=== PATIENT | female | born 1980 | race Caucasian/White ===

== ENCOUNTER 2016-10-20 12:25 | Emergency (ER) | END 2016-10-20 12:30 | disposition left against medical advice (07) | LOC: UCEAST 12:25 | DX: L98.9 Disorder of the skin and subcutaneous tissue, unspecified (principal); Z53.21 Procedure and treatment not carried out due to patient leaving prior to being seen by health care provider ==

== ENCOUNTER 2016-10-20 12:32 | Emergency (ER) | payer BC ==
[2016-10-20 13:20] VITALS: BP 140/81
--- NOTE | 2016-10-20 14:03 | UC ---
Skin Complaint HPI - HPI Summary HPI Summary: 1) MOLE ON LEFT SIDE OF ABDOMEN BECAME CRUSTY AND SHANGED COLOR. WOULD LIKE REFERRAL FOR DERMATOLOGY. 2) RAN OUT OF PAXIL AND IS BETWEEN PRIMARY CARE DOCTORS. IS GOING TO CALL PREVIOUS PCP TO SEE IF PAXIL PRESCRIPTION CAN BE CALLED IN. - History of Current Complaint Chief Complaint: UCSkin Time Seen by Provider: 10/20/16 13:06 Stated Complaint: SKIN COMPLAINT Hx Obtained From: Patient Hx Last Menstrual Period: 10/13/16 Onset/Duration: Gradual Onset, Lasting Days, Still Present Skin Exposure Onset/Duration: Days Ago Onset Severity: Mild Current Severity: Mild Pain Intensity: 0 Pain Scale Used: 0-10 Numeric Location: Discrete - LEFT ANTERIOR ABDOMEN Aggravating: Nothing Alleviating: Nothing Associated Signs & Symptoms: Positive: Negative - Allergy/Home Medications Allergies/Adverse Reactions: Allergies Allergy/AdvReac Type Severity Reaction Status Date / Time No Known Allergies Allergy Verified 10/20/16 13:12 Home Medications: Home Medications Ibuprofen TAB* [Advil TAB*] 600 mg PO Q6H PRN 10/20/16 [History Confirmed ] PARoxetine HCL TAB* [Paxil TAB*] 40 mg PO DAILY 10/20/16 [History Confirmed ] Review of Systems Constitutional: Negative Skin: Other - MOLE LEFT ANTERIOR ABDOMEN (LUQ) CHANGING TEXTURE/SHAPE Eyes: Negative ENT: Negative Respiratory: Negative Cardiovascular: Negative Gastrointestinal: Negative Genitourinary: Negative Motor: Negative Neurovascular: Negative Musculoskeletal: Negative Neurological: Negative Psychological: Negative All Other Systems Reviewed And Are Negative: Yes PMH/Surg Hx/FS Hx/Imm Hx Previously Healthy: Yes - Surgical History Surgical History: None - Family History Known Family History: Positive: None Negative: Cardiac Disease, Blood Disorder, Other Family History: no cardio-vascular issues in bio family - Social History Occupation: Employed Full-time Lives: With Family Alcohol Use: Occasionally Substance Use Type: None Smoking Status (MU): Current Some Day Smoker Type: Cigarettes Amount Used/How Often: occasional use Cessation Counseling: Patient Advised to Stop Physical Exam Triage Information Reviewed: Yes Appearance: Well-Appearing, No Pain Distress, Well-Nourished Vital Signs: Initial Vital Signs Temp 99 F 10/20/16 13:14 Pulse 84 10/20/16 13:14 Resp 16 10/20/16 13:14 BP 140/81 10/20/16 13:14 Pulse Ox 100 10/20/16 13:14 Vital Signs Reviewed: Yes Eye Exam: Normal ENT Exam: Normal ENT: Positive: Normal ENT inspection, Hearing grossly normal, Pharynx normal, TMs normal Dental Exam: Normal Neck exam: Normal Neck: Positive: Supple, Nontender, No Lymphadenopathy Respiratory Exam: Normal Respiratory: Positive: Chest non-tender, Lungs clear, Normal breath sounds, No respiratory distress, No accessory muscle use Cardiovascular Exam: Normal Cardiovascular: Positive: RRR, No Murmur, Pulses Normal Abdominal Exam: Normal Musculoskeletal Exam: Normal Neurological Exam: Normal Psychological Exam: Normal Skin: Positive: Other - MOLE LEFT ANTERIOR ABDOMEN (LUQ) CHANGING TEXTURE/ SHAPE. MOLE IS 0.5 CM X 0.5 CM MACULAR, LIGHT BROWN, WITH BLACK CENTRAL SPECKS ON LUQ OF ANTERIOR ABDOMEN Course/Dx - Differential Diagnoses - Skin Complaint Differential Diagnoses: Cellulitis, Eczema, Impetigo, Tinea - Diagnoses Provider Diagnoses: ATYPICAL MOLE LUQ; MOOD DISORDER NOS. Discharge - Discharge Plan Condition: Stable Disposition: HOME Patient Education Materials: Mood Disorders (ED), Atypical Mole (ED) Referrals: Zach Moreno MD [Medical Doctor] - Non Staff,Doctor [Primary Care Provider] - Robert RG,Bryce Patel [Medical Doctor] - Images Front/Back of Body, Lg ([place]): 1 - MOLE LEFT ANTERIOR ABDOMEN (LUQ) CHANGING TEXTURE/SHAPE
== END 2016-10-20 13:45 | disposition home or self-care (01) ==
LOC: UCCORT 12:32
DX: D22.5 Melanocytic nevi of trunk (principal); F39 Unspecified mood [affective] disorder; Z72.0 Tobacco use
CPT/HCPCS: 99212; G0463

== ENCOUNTER 2017-05-06 09:07 | Emergency (ER) | payer BC ==
--- NOTE | 2017-05-06 09:19 | UC ---
Skin Complaint HPI - HPI Summary HPI Summary: 37 year old female with rash. c/o red, raised, slightly itching area on upper abd that started on 04/26/17. has one pactch on the chest that started and now the rash has spread down the abdomen . slight itch. not significant. no discharge. no erythema. no streaking. [facility] and may have started then or after she is not sure [ End ] - History of Current Complaint Time Seen by Provider: 05/06/17 09:18 Stated Complaint: RASH Hx Obtained From: Patient Hx Last Menstrual Period: 10/13/16 Onset/Duration: Gradual Onset Timing: Constant Aggravating Factor(s): Nothing Alleviating Factor(s): Nothing - Allergy/Home Medications Allergies/Adverse Reactions: Allergies Allergy/AdvReac Type Severity Reaction Status Date / Time No Known Allergies Allergy Verified 05/06/17 09:20 Home Medications: Home Medications Bc Patch 1 applic TOPICAL WEEKLY 05/06/17 [History] Review of Systems Skin: Rash All Other Systems Reviewed And Are Negative: Yes PMH/Surg Hx/FS Hx/Imm Hx Previously Healthy: Yes - Surgical History Surgical History: None - Family History Known Family History: Positive: None Negative: Cardiac Disease, Blood Disorder, Other Family History: no cardio-vascular issues in bio family - Social History Occupation: Employed Full-time Alcohol Use: Occasionally Substance Use Type: None Smoking Status (MU): Current Some Day Smoker Type: Cigarettes Amount Used/How Often: occasional use Cessation Counseling: Patient Advised to Stop Physical Exam Triage Information Reviewed: Yes Appearance: Well-Appearing, No Pain Distress, Well-Nourished Vital Signs Reviewed: Yes Respiratory Exam: Normal Cardiovascular Exam: Normal Musculoskeletal Exam: Normal Neurological Exam: Normal Psychological Exam: Normal Skin: Positive: rashes - herald raised red patch on sterum 2x2 cm. maculopapular red raised lesions in rebeca tree pattern on the abdomen. no discharge. no erythema. no streaking. Course/Dx - Course Course Of Treatment: appears to be classic case of pityriasis rosea. counselled and reassured patient. steroid cream prn itch. RTO if any concerns - Diagnoses Provider Diagnoses: pityriasis rosea Discharge - Discharge Plan Condition: Good Disposition: HOME Prescriptions: Hydrocortisone Valerate [Westcort] 0.2 % EX BID PRN #1 tube PRN Reason: Itching Patient Education Materials: Pityriasis rosea (ED) Forms: *Work Release Referrals: Non Staff,Doctor [Primary Care Provider] - 4 Days (if needed )
[2017-05-06 09:26] VITALS: BP 132/97
== END 2017-05-06 10:00 | disposition home or self-care (01) ==
LOC: UCCORT 09:07
DX: L42 Pityriasis rosea (principal); F17.210 Nicotine dependence, cigarettes, uncomplicated
CPT/HCPCS: 99212; G0463